=== PATIENT | male | born 1980 | race American Indian/Alaskan Native ===

== ENCOUNTER 2024-09-01 15:54 | Emergency (ER) | payer BC, MEDICAID, SELFPAY ==
[2024-09-01 16:28] VITALS: BP 122/83; PULSE 80; RESP 18; TEMP 36.9; O2SAT 98; BMI 38.3
--- NOTE | 2024-09-01 16:38 | EDNOTE_ITS ---
<Statement entered by Madhuri Langley MD - 09/04/24 15:21> As co-signing physician, I was present and available for consult prn. I concur with the plan and care as documented by the midlevel provider. ED General RME/HPI General Chief complaint: Abdominal Pain Stated complaint: ABD PAIN, BLOOD IN STOOL Time Seen by Provider: 09/01/24 15:58 Arrival date/time: 09/01/24 15:54 RME / HPI RME / HPI narrative: 44-year-old male patient came in for evaluation regarding diarrhea. Onset of symptoms for 1 week as diarrhea, associated with blood streak stool. Initially noted a week ago and now it is lifting it up according to him. Also complaint of abdominal cramping. Denies any fever denies any vomiting. Patient was seen by PCP and was given loperamide and azithromycin. Currently patient is not having any abdominal pain. No fever. No more diarrhea. Patient is concerned and asking if he can do x-ray see was the reason for the bloody diarrhea. Patient is ambulatory. Patient still on the third day of azithromycin. Related Data Home Medications ?Medication ?Instructions ?Recorded ?Confirmed omeprazole 20 mg capsule,delayed 20 mg PO QDAY 2 10/22/21 release Previous Rx's ?Medication ?Instructions ?Recorded naproxen 500 mg tablet 500 mg PO BID PRN pain #30 t abs 10/23/23 Allergies Allergy/AdvReac Type Severity Reaction Status Date / Time No Known Allergies Allergy Verified 09/01/24 15:57 Review of Systems Review of Systems Narrative Review of Systems: Review of system reviewed and within normal limits except mentioned in HPI ED Exam Narrative Physical exam: VITAL SIGNS: Reviewed. GENERAL APPEARANCE: Alert and interactive, follows commands, no acute distress, HEAD AND FACE: Non-traumatic. ENT: PERRL, pink conjunctivitis, eyelid no trauma, Mucous membrane moist. NECK: Supple, nontender, no nuchal rigidity. CHEST: No tenderness, no crepitus, no paradoxical movement, no retractions. LUNGS: Clear, well ventilated, symmetric, no rales, no wheezing, no ronchi, no stridor, good breath sounds bilaterally. HEART: Regular rate, regular rhythm, no murmur, no gallops. ABDOMEN: Soft, positive bowel sounds, nondistended, no guarding, nontender, no rebound, no masses, RECTAL: Deferred. GENITAL: Deferred. NEUROLOGICAL: Gross motor function intact sensory function intact, Appropriate for age. MUSCULOSKELETAL: low back nontender, full range of motion. EXTREMITIES: Nontender, full range of motion. SKIN: Color pink, dry, no rash, no lacerations, no abrasions, no contusions. LYMPHATICS: Deferred. Course Quality Measures none Vital Signs Vital signs: Vital Signs Temperature 98.5 F 09/01/24 16:28 Pulse Rate 80 09/01/24 16:28 Respiratory Rate 18 09/01/24 16:28 Blood Pressure 122/83 09/01/24 16:28 Pulse Oximetry (%) 98 09/01/24 16:28 Oxygen Delivery Method Room Air 09/01/24 16:28 MDM Patient data External records reviewed:: None Clinical information provided by:: patient Social determinants that could affect healthcare access:: none Patient has the following chronic illnesses:: None How is presenting disease/condition affected by chronic disease/condition?: no chronic disease Evaluation data The following diagnostics were reviewed and interpreted by me:: other (specify) Lab and/or radiology exams considered but not ordered:: None Interpretation Summary: None Medications Medications considered but not ordered:: None Medication administrations:: None Consultations Consultation(s) initiated? (list below): No Diagnosis Differential Diagnosis ED Complaint MDM: Bloody diarrhea, bright red blood in the stool, gastroenteritis Most likely diagnosis given after review of the tests above:: Bloody diarrhea Admission Indicated Admission indicated?: not indicated Explain why admission is indicated or not indicated:: Stable Admission Request Was there a request for admission?: No Disposition Plan Disposition Plan: Discharge Discharge Attestation Discharge Attestation: The patient was given an opportunity to ask questions and understood the discharge instructions. Discharge instructions specifically effects, indications for sooner follow up or return to the emergency department, and the expected course of current diagnosis. Patient condition: Stable Medical Decision Making MDM Narrative MDM Narrative: 44-year-old male patient came in for evaluation regarding diarrhea. Onset of symptoms for 1 week as diarrhea, associated with blood streak stool. Initially noted a week ago and now it is lifting it up according to him. Also complaint of abdominal cramping. Denies any fever denies any vomiting. Patient was seen by PCP and was given loperamide and azithromycin. Currently patient is not having any abdominal pain. No fever. No more diarrhea. Patient is concerned and asking if he can do x-ray see was the reason for the bloody diarrhea. Patient is ambulatory. Patient still on the third day of azithromycin. Imaging or workup not needed at this time. Patient is afebrile, vital signs normal, patient is not having any abdominal pain. And patient told me that he is blood in the stool is almost gone. And currently patient is taking antibiotic. Patient was advised to finish the antibiotic and return to emergency room in few days if he still having blood in the stool. Patient agrees with the plan. Differential Diagnosis Differential Diagnosis: Bloody diarrhea, bright red blood in the stool, gastroenteritis Discharge Plan Plan Patient Disposition: HOME (Self Care) Disposition Comment: Stable Prescriptions/Referrals Prescriptions/Med Rec: No Action omeprazole 20 mg capsule,delayed release(DR/EC) 20 mg PO QDAY naproxen 500 mg tablet 500 mg PO BID PRN (Reason: pain) Qty: 30 0RF Problem List Clinical Impression: Bloody diarrhea Patient/Caregiver Discharge Instructions Discharge Activity: activity as tolerated Education Materials: Low-Fiber Diet Additional Instructions: Thank you for the opportunity for serving you today. You are stable for discharged . You are advised to: Follow-up with your PCP in 1 to 2 days Return to ED for worsening of symptoms Increase oral fluids Take medication as prescribed by your PCP Print Language: Swedish Stand Alone Forms: Key Award Info., Patient Portal Info Letter PA/PRISCILA Supervising Physician ERICA/PRISCILA Supervising Physician: MD Chris
== END 2024-09-01 17:10 | disposition home or self-care (01) ==
PROVIDERS: Emergency Provider Emergency Medicine
DX: K92.1 Melena (principal)
CPT/HCPCS: 99281